=== PATIENT | female | born 1945 | race Caucasian/White ===

== ENCOUNTER → 2018-05-30 14:35 | Outpatient (CLI) | payer MEDICARE, SELFPAY ==
--- NOTE | 2018-06-02 16:02 | PM.PFT.1 ---
Pulmonary Function Test Referral & Results Date Patient Seen: 05/30/18 Requesting provider: Josef Rangel Indication: [id number] Results: The spirometry demonstrates an FVC of 2.25 L which is 86% of predicted. The FEV1 was measured at 1.67 L which is 84% of predicted. The FEV1/FVC ratio was 70 for which is 90% of predicted. Following the administration of bronchodilator there was at 37% improvement in FEF 25-75%. Lung volumes show an SVC of 2.48 L which is 95% of predicted. The diffusing capacity was measured at 20.12 which is 93% of predicted. The maximum voluntary ventilation was reduced Interpretation: This study demonstrates mild obstructive lung disease based on slight reduction in FEV1 and improvement in small airway flow based on the 37% improvement in the FEF 25-75% following bronchodilator administration Lung volumes and diffusing capacity are normal
== END ==
PROVIDERS: Visit Provider Student in an Organized Health Care Education/Training Program
DX: J40 Bronchitis, not specified as acute or chronic (principal)
CPT/HCPCS: 94060; 94726; 94729